=== PATIENT | female | born 1965 | race Caucasian/White ===

== ENCOUNTER 2020-04-03 18:02 | Emergency (ER) | payer MEDICAID ==
[~2020-04-03] VITALS: Ht 165.1 cm; Wt 90.0 kg
[2020-04-03 18:13] VITALS: BP 140/83
[2020-04-03] MEDS ORDERED: CLON1TAB PO (18:19)
[2020-04-03] MEDS ORDERED: LEVO50TA8 PO (18:19)
[2020-04-03] MEDS ORDERED: IBUPROFEN 600MG TABLET PO STA (21:37)
== END 2020-04-03 23:26 | disposition home or self-care (01) ==
LOC: ER 18:02
DX: M70.52 Other bursitis of knee, left knee (principal); Y93.89 Activity, other specified; F41.9 Anxiety disorder, unspecified; Z98.890 Other specified postprocedural states; E03.9 Hypothyroidism, unspecified; Z88.6 Allergy status to analgesic agent
CPT/HCPCS: 73562; 93971; 99284